=== PATIENT | female | born 1955 | race Caucasian/White ===

== ENCOUNTER 2022-06-30 10:41 | Outpatient (CLI) | payer BC, SELFPAY | END 2022-06-30 10:42 | disposition home or self-care (01) | LOC: NFLDREF 10:42 | PROVIDERS: PCP Internal Medicine; Visit Provider Internal Medicine | DX: R39.9 Unspecified symptoms and signs involving the genitourinary system (principal) | CPT/HCPCS: 87086 ==

== ENCOUNTER 2022-09-02 07:47 | Outpatient (CLI) | payer BC, SELFPAY ==
[2022-09-02 10:11] LABS: Cholesterol* 190 mg/dL (90-199)
[2022-09-02 10:12] LABS: HDL Cholesterol* 75 mg/dL (>=50); LDL Cholesterol Calculated 84 mg/dL (<100); Triglycerides* 156 mg/dL (40-149)
== END 2022-09-02 07:48 | disposition home or self-care (01) ==
LOC: NFLDREF 07:48
PROVIDERS: PCP Internal Medicine; Visit Provider Internal Medicine
DX: E78.5 Hyperlipidemia, unspecified (principal)
CPT/HCPCS: 80061

== ENCOUNTER 2023-10-23 07:40 | Outpatient (CLI) | payer MEDICARE, BC, SELFPAY | END 2023-10-23 07:41 | disposition home or self-care (01) | LOC: NFLDREF 11-16 14:33 | PROVIDERS: PCP Internal Medicine; Referring Provider Internal Medicine; Visit Provider Internal Medicine | DX: E78.5 Hyperlipidemia, unspecified (principal); M81.0 Age-related osteoporosis without current pathological fracture | CPT/HCPCS: 80061; 82306 ==

== ENCOUNTER 2024-01-08 11:15 | Outpatient (CLI) | payer MEDICARE, BC, SELFPAY ==
--- NOTE | 2024-01-08 11:30 | CRLHL7_ITS ---
For Patients: As a result of the Century Cures Act, medical imaging exams and procedure reports are released immediately into your electronic medical record. You may view this report before your referring provider. If you have questions, please contact your health care provider. BILATERAL SCREENING MAMMOGRAM WITH COMPUTER-AIDED DETECTION AND TOMOSYNTHESIS TECHNIQUE: CC and MLO views were obtained. These mammographic images have been obtained using full-field digital technique. These mammographic images were interpreted with the benefit of computer-aided detection. Breast Tomosynthesis was used in this interpretation. COMPARISON FILM: 12/01/22, 11/03/21, 02/18/19. FINDINGS: There are scattered areas of fibroglandular density. IMPRESSION: There is no radiographic evidence for malignancy. ASSESSMENT: BI-RADS Category 1: Negative RECOMMENDATION: Routine screening mammogram in 1 year. A lay language report of this examination will be provided to the patient. Bartolome Acosta M.D. Diagnostic Radiologist [email or web address] SP/Dictated by: Bartolome Acosta MD @ 01/08/2024 12:22:00 PM (Electronically Signed)
== END 2024-01-08 11:16 | disposition home or self-care (01) ==
LOC: MAMMO 11:16
PROVIDERS: PCP Internal Medicine; Visit Provider Internal Medicine
DX: Z12.31 Encounter for screening mammogram for malignant neoplasm of breast (principal)
CPT/HCPCS: 77063; 77067

== ENCOUNTER 2024-06-03 10:42 | Outpatient (CLI) | payer MEDICARE, BC, SELFPAY | END 2024-06-03 10:43 | disposition home or self-care (01) | LOC: NFLDREF 14:32 | PROVIDERS: PCP Internal Medicine; Referring Provider Internal Medicine; Visit Provider Registered Nurse | DX: R39.15 Urgency of urination (principal); N89.8 Other specified noninflammatory disorders of vagina | CPT/HCPCS: 87086; 87186 ==

== ENCOUNTER 2024-12-13 08:04 | Outpatient (CLI) | payer MEDICARE, BC, SELFPAY | END 2024-12-13 08:05 | disposition home or self-care (01) | LOC: NFLDREF 12-15 05:39 | PROVIDERS: PCP Internal Medicine; Referring Provider Internal Medicine; Visit Provider Internal Medicine | DX: M85.80 Other specified disorders of bone density and structure, unspecified site (principal); E78.5 Hyperlipidemia, unspecified; E66.9 Obesity, unspecified; I10 Essential (primary) hypertension; Z13.1 Encounter for screening for diabetes mellitus | CPT/HCPCS: 80061; 82306; 82947 ==

== ENCOUNTER 2025-03-17 07:06 | Outpatient (CLI) | payer MEDICARE, BC, SELFPAY ==
--- NOTE | 2025-03-17 08:30 | P.ANES_ITS ---
Anesthesia Charges Start Date/Time Anesthesia Start Date: 03/17/25 Anesthesia Start Time: 08:06 Stop Date/Time Anesthesia Stop Date: 03/17/25 Anesthesia Stop Time: 08:30 Coding CPT Codes CPT Codes: FABRIZIO LWR INTST NDSC NOS - [id number] ([id number]) P2 - PATIENT W/MILD SYST DISEASE, QK - WINDOWS SOFTWARE ENGINEER 2-4 CNCRNT ANES PROC, QX - INDUSTRIAL MANAGEMENT TEACHER SVC W/ MD MED DIRECTION
--- NOTE | 2025-03-17 08:30 | W.ANESCHARGE ---
Anesthesia Charges Start Date/Time Anesthesia Start Date: 03/17/25 Anesthesia Start Time: 08:06 Stop Date/Time Anesthesia Stop Date: 03/17/25 Anesthesia Stop Time: 08:30 Coding CPT Codes CPT Codes: FBARIZIO LWR INTST NDSC NOS - [id number] ([id number]) P2 - PATIENT W/MILD SYST DISEASE, QK - CDL PROGRAM COORDINATOR 2-4 CNCRNT ANES PROC, QX - SALES ATTENDANT SVC W/ MD MED DIRECTION
--- NOTE | 2025-03-17 09:23 | P.ANES_ITS ---
Anesthesia Charges Start Date/Time Anesthesia Start Date: 03/17/25 Anesthesia Start Time: 08:06 Stop Date/Time Anesthesia Stop Date: 03/17/25 Anesthesia Stop Time: 08:30 Coding CPT Codes CPT Codes: FABRIZIO LWR INTST NDSC NOS - [id number] ([id number]) P2 - PATIENT W/MILD SYST DISEASE, QK - TUFT MACHINE OPERATOR 2-4 CNCRNT ANES PROC, QX - VBA PROGRAMMER SVC W/ MD MED DIRECTION
--- NOTE | 2025-03-17 09:23 | W.ANESCHARGE ---
Anesthesia Charges Start Date/Time Anesthesia Start Date: 03/17/25 Anesthesia Start Time: 08:06 Stop Date/Time Anesthesia Stop Date: 03/17/25 Anesthesia Stop Time: 08:30 Coding CPT Codes CPT Codes: FABRIZIO LWR INTST NDSC NOS - [id number] ([id number]) P2 - PATIENT W/MILD SYST DISEASE, QK - BRAKE RELINER 2-4 CNCRNT ANES PROC, QX - CHICKEN BUYER SVC W/ MD MED DIRECTION
== END 2025-03-17 07:07 | disposition home or self-care (01) ==
LOC: OP CLINIC 07:11
PROVIDERS: PCP Internal Medicine; Visit Provider Internal Medicine
DX: Z12.11 Encounter for screening for malignant neoplasm of colon (principal); Z86.0100 Personal history of colon polyps, unspecified; D12.5 Benign neoplasm of sigmoid colon; K64.8 Other hemorrhoids; K57.30 Diverticulosis of large intestine without perforation or abscess without bleeding; R19.7 Diarrhea, unspecified
CPT/HCPCS: 00811; 45380; 88305; J2704

== ENCOUNTER 2025-04-30 13:34 | Outpatient (CLI) | payer MEDICARE, BC, SELFPAY ==
--- NOTE | 2025-04-30 14:00 | CRLHL7_ITS ---
For Patients: As a result of the Century Cures Act, medical imaging exams and procedure reports are released immediately into your electronic medical record. You may view this report before your referring provider. If you have questions, please contact your health care provider. INDICATION: BILATERAL SCREENING MAMMOGRAM, ASYMPTOMATIC 69 Y/O FEMALE COMPARISON: 01/08/2024, 12/01/2022, 11/03/2021 TECHNIQUE: Digital mammogram in CC and MLO projections including computer-aided detection (CAD) and tomosynthesis. BREAST COMPOSITION: The breasts are almost entirely fatty. FINDINGS: No suspicious findings. ASSESSMENT: BI-RADS 2 Benign RECOMMENDATION: Annual screening mammogram. A lay language report of this examination will be provided to the patient. Dictated by: Bartolome Acosta MD @ 05/01/2025 12:05:43 (Electronically Signed)
== END 2025-04-30 13:35 | disposition home or self-care (01) ==
LOC: MAMMO 13:35
PROVIDERS: PCP Internal Medicine; Visit Provider Internal Medicine
DX: Z12.31 Encounter for screening mammogram for malignant neoplasm of breast (principal)
CPT/HCPCS: 77063; 77067